=== PATIENT | female | born 1930 | race Caucasian/White ===

== ENCOUNTER → 2018-07-26 | Outpatient (CLI) | payer MEDICARE ==
[~2018-07-26] MED LIST: ALENDRONATE SOD70 MG PO; AMLODIPINE BESYL5 MG PO; ASPIR 8181 MG PO; CARVEDILOL PO; CITRACAL CALCIUM PO; GLUCOSAMINE1000 MG PO; LOVASTATIN40 MG PO; OMEPRAZOLE20 M1 PO; OXYBUTYNIN PO; [UNRECOGNIZED DRUG - OTHER] PO
--- NOTE | 2018-07-26 13:19 | Diagnostic Imaging Report ---
EXAM: Renal Ultrasound INDICATION: Chronic kidney disease. COMPARISON: None TECHNIQUE: Transverse and longitudinal images of the kidneys and bladder were obtained. FINDINGS: Right Kidney: Length: 10.8 x 3.8 x 4.9 cm, the renal cortex measures 1.0 cm Appearance: Normal echogenicity. Collecting system: No hydronephrosis Stones: None Cyst/Mass: None Left Kidney: Length: 9.6 x 3.2 x 3.1 cm, the renal cortex measures 1.2 cm Appearance: Normal echogenicity. Collecting system: No hydronephrosis Stones: None Cyst/Mass: None Bladder: Partially decompressed. Bilateral ureteral jets are seen. Prevoid volume of 31.4 cc. There is no post void volume. IMPRESSION: Unremarkable renal ultrasound. Signed by: Dr. Lisa Villagomez MD on 07/26/2018 1:16 PM
== END ==
LOC: US 11:43
PROVIDERS: ATTEND Urology
DX: N18.9 Chronic kidney disease, unspecified (principal)
CPT/HCPCS: 76770

== ENCOUNTER → 2020-04-14 | Outpatient (CLI) | payer MEDICARE | LOC: US 11:13 | PROVIDERS: ATTEND Urology | DX: N39.0 Urinary tract infection, site not specified (principal) | CPT/HCPCS: 74018; 76770 ==